=== PATIENT | male | born 1995 | race Caucasian/White ===

== ENCOUNTER 2016-06-14 21:33 | Emergency (ER) | payer OTHER ==
[~2016-06-14] VITALS: Ht 188 cm; Wt 105.1 kg
[2016-06-14 21:34] VITALS: BP 149/106
== END 2016-06-14 22:46 | disposition home or self-care (01) ==
LOC: ED 22:40
DX: Z76.1 Encounter for health supervision and care of foundling (principal)
CPT/HCPCS: 99283